=== PATIENT | female | born 1945 ===

== ENCOUNTER 2021-01-29 07:05 | Day surgery (SDC) | payer OTHER ==
[~2021-01-29] VITALS: Ht 154.9 cm; Wt 70.3 kg
[2021-01-29] MEDS ORDERED: diphenhydrAMINE 50 MG/ML VIAL ONE (08:12)
[2021-01-29] MEDS ORDERED: fentaNYL citrate 0.05 MG/ML VIAL ONE (08:12)
[2021-01-29] MEDS ORDERED: MIDAZOLAM 5 MG/5 ML VIAL ONE (08:13)
[2021-01-29] MEDS ORDERED: LIDOCAINE 2% 100 MG/5 ML UJET TP ONE (08:19)
[2021-01-29] MEDS ORDERED: MIDAZOLAM 2 MG/2 ML VIAL IVP ONE (14:00)
[2021-01-29] MEDS ORDERED: fentaNYL citrate 0.05 MG/ML VIAL IVP ONE (14:00)
== END 2021-01-29 10:35 | disposition home or self-care (01) ==
LOC: MOR 07:05 → MMU 07:11 → MOR 10:35
PROVIDERS: ATTEND Internal Medicine Gastroenterology
DX: Z12.11 Encounter for screening for malignant neoplasm of colon (principal); K57.30 Diverticulosis of large intestine without perforation or abscess without bleeding; K59.00 Constipation, unspecified; K21.9 Gastro-esophageal reflux disease without esophagitis; I10 Essential (primary) hypertension; E11.9 Type 2 diabetes mellitus without complications; E78.00 Pure hypercholesterolemia, unspecified; Z79.899 Other long term (current) drug therapy
CPT/HCPCS: 45378; J2250; J3010; J1200